=== PATIENT | female | born 1990 | race Caucasian/White ===

== ENCOUNTER 2016-09-14 15:55 | Emergency (ER) | payer MEDICAID ==
[2016-09-14 16:11] VITALS: BP 134/79
[2016-09-14] MEDS ORDERED: Ketorolac 60 MG/2 ML SDV IM ONE (16:31)
--- NOTE | 2016-09-14 16:37 | EDM.PDOC ---
ED HPI GENERAL MEDICAL PROBLEM - General Chief Complaint: Back Pain or Injury Stated Complaint: BACK PAIN Time Seen by Provider: 09/14/16 16:16 Source of Information: Reports: Patient History Limitations: Reports: No Limitations - History of Present Illness INITIAL COMMENTS - FREE TEXT/NARRATIVE: Patient is a 25 year old female who presents to the E.D. complaining of left sided low back pain that started this a.m. after working out. Patient states she was on a stationary bike for 30 minutes and returned home to shower. After showering patient developed severe pain to the low back that was relieved with lying flat on her back with legs elevated. Patient got back up and started experiencing pain to the low back again. This was not relieved with laying on her back for almost 1.5 hrs. States it took her most an hour to get off the floor. States pain is worsened with movement and ambulation. She has a slight limp present. She denies any previous history of back injury. Nor does she complain of any pain with urination, nausea/vomiting, fever/chills, abdominal pain, numbness/tingling, saddle anesthesia, or incontinence to urine, or any additional complaints. Treatments COMMUNITY LIAISON: Reports: Acetaminophen Other Treatments COMMUNITY LIAISON: 2000 mg at 1515 Back Pain Score (Numeric/FACES): 6 - Related Data Allergies Allergy/AdvReac Type Severity Reaction Status Date / Time No Known Allergies Allergy Verified 09/14/16 16:06 Home Meds: Home Meds Cyclobenzaprine [Flexeril] 5 mg PO TID PRN #15 tablet 09/14/16 [Rx] Past Medical History - Past Health History Medical/Surgical History: Denies Medical/Surgical History Social & Family History - Tobacco Use Smoking Status *Q: Current Every Day Smoker Years of Tobacco use: 4 Packs/Tins Daily: 0.5 - Recreational Drug Use Recreational Drug Use: No ED ROS GENERAL - Review of Systems Review Of Systems: See Below Respiratory: Reports: No Symptoms Cardiovascular: Reports: No Symptoms GI/Abdominal: Reports: No Symptoms Musculoskeletal: Reports: Back Pain Skin: Reports: No Symptoms Neurological: Reports: Gait Disturbance. Denies: Numbness, Tingling, Difficulty Walking ED EXAM,LOWER BACK PAIN/INJURY - Physical Exam Exam: See Below Exam Limited By: No Limitations General Appearance: Alert, WD/WN, No Apparent Distress Ears: Hearing Grossly Normal Nose: Normal Inspection Throat/Mouth: Normal Voice, No Airway Compromise Head: Atraumatic, Normocephalic Neck: Normal Inspection, Supple Respiratory/Chest: No Respiratory Distress, Lungs Clear, Normal Breath Sounds, No Accessory Muscle Use, Chest Non-Tender Cardiovascular: Normal Peripheral Pulses, Regular Rate, Rhythm GI/Abdominal: Normal Bowel Sounds, Soft, Non-Tender, No Organomegaly, No Distention Back Exam: Normal Inspection, Other (pain to the left SI joint. ). No: Paraspinal Tenderness, Vertebral Tenderness Extremities: Normal Inspection, Normal Range of Motion, Non-Tender, No Pedal Edema, Normal Capillary Refill Neurological: Alert, Normal Mood/Affect, Normal Dorsiflexion, CN II-XII Intact, Normal Plantar Flexion, Normal Reflexes, No Motor/Sensory Deficits, Oriented x 3. No: Normal Gait, Straight Leg Raise (L), Straight Leg Raise (R), Difficulty Walking Psychiatric: Normal Affect, Normal Mood Skin Exam: Warm, Dry, Intact, Normal Color, No Rash Course - Vital Signs Last Recorded V/S: Last Vital Signs Temp 98.3 F 09/14/16 16:07 Pulse 85 09/14/16 16:07 Resp BP 134/79 09/14/16 16:07 Pulse Ox 96 09/14/16 16:07 - Orders/Labs/Meds Meds: Medications Discontinued Medications Generic Name Dose Route Start Last Admin Trade Name Milagros PRN Reason Stop Dose Admin Ketorolac Tromethamine 60 mg 09/14/16 16:31 09/14/16 16:38 Toradol IM 09/14/16 16:32 60 mg ONETIME ONE Administration - Re-Assessments/Exams Free Text/Narrative Re-Assessment/Exam: Patient has taken 2000 mg of Tylenol prior to arrival. She did drive herself to the ED thus no sedative medications will be provided. Examination did not elicit any findings that require imaging. Will order Toradol 60 mg IM. Will discharge patient home with instructions as documented with prescription for Flexeril. 09/14/16 16:39 Departure - Departure Time of Disposition: 16:32 Disposition: Home, Self-Care 01 Condition: Good Clinical Impression: Low back pain Qualifiers: Chronicity: acute Back pain laterality: left Sciatica presence: unspecified whether sciatica present Qualified Code(s): M54.5 - Low back pain - Discharge Information Prescriptions: Cyclobenzaprine [Flexeril] 5 mg PO TID PRN #15 tablet PRN Reason: Pain Instructions: Back Pain, Adult, [id number], Pain Medicine Instructions, Easy- to-Read, Back Injury Prevention, [id number] Referrals: Arpita Skinner PA [Physician Manager Audio] - Forms: ED Department Discharge Additional Instructions: As discussed take Tylenol 650 mg every 6 hours and ibuprofen 600 mg every 6 hours in alternating fashion. Refrain from any activities that cause worsening pain. Utilize warm and ice compresses in alternating fashion for pain. Take flexeril 5mg three times a day as needed for back pain. Followup with PCP in the next week for reevaluation as needed. Return to the E.D. for any new or worsening symptoms. No driving while taking the flexeril.
== END 2016-09-14 16:48 | disposition home or self-care (01) ==
LOC: JD.ED 15:55
DX: M54.5 Low back pain (principal); F17.210 Nicotine dependence, cigarettes, uncomplicated
CPT/HCPCS: 96372; 99283; J1885